=== PATIENT | female | born 1960 | race American Indian/Alaskan Native ===

== ENCOUNTER 2018-03-13 12:30 | Outpatient (CLI) | payer BC ==
--- NOTE | 2018-03-13 14:54 | Cat Scan Report ---
FINAL REPORT EXAM: CT CHEST WO CON HISTORY: PERSISTENT COUGH/DYSPNEA TECHNIQUE: CT examination of the chest without IV contrast PRIORS: None. FINDINGS: Normal cardiac size without pericardial effusion. Normal caliber thoracic aorta. Suggestion of postoperative change of the GE junction. Otherwise normal-appearing esophagus. No hilar mass or mediastinal adenopathy. Prominent granulomatous calcification in the right hilum, subcarinal region, right lung, liver, and spleen. Diverticulosis in visible portion of colon. No acute fracture or focal osseous lesion. Slight degenerative change in the regional skeleton. No lung mass or pulmonary nodule. No pneumothorax, pleural effusion, or focal pulmonary consolidation. IMPRESSION: Diverticulosis visible portion of colon No CT evidence of acute cardiopulmonary disease
== END 2018-03-13 12:31 | disposition home or self-care (01) ==
LOC: CT 12:30
PROVIDERS: ATTEND Specialist
DX: R05 Cough (principal); R06.00 Dyspnea, unspecified; K57.30 Diverticulosis of large intestine without perforation or abscess without bleeding; Z91.018 Allergy to other foods
CPT/HCPCS: 71250

== ENCOUNTER 2018-03-31 11:22 | Outpatient (CLI) | payer BC ==
--- NOTE | 2018-04-04 05:19 | Treadmill Report ---
THALLIUM STRESS TEST LEFT VENTRICLE: Left ventricular chamber size is within normal spread. Perfusion study demonstrates homogeneous uptake of the tracer in all segments, no significant perfusion defects identified. Gated analysis demonstrates normal left ventricular systolic function, ejection fraction 70%. CONCLUSION: Normal myocardial perfusion study. JOB# [id number] CA/NTS
== END 2018-03-31 11:23 | disposition home or self-care (01) ==
LOC: CARD 11:22
PROVIDERS: ATTEND Internal Medicine Cardiovascular Disease
DX: I34.0 Nonrheumatic mitral (valve) insufficiency (principal); J45.909 Unspecified asthma, uncomplicated; Z91.018 Allergy to other foods
CPT/HCPCS: 78452; 93017; 93306; A9502

== ENCOUNTER 2018-06-23 11:00 | Outpatient (CLI) | payer BC | END 2018-06-23 11:01 | disposition home or self-care (01) | LOC: SLR 11:00 | PROVIDERS: ATTEND Otolaryngology | DX: G47.33 Obstructive sleep apnea (adult) (pediatric) (principal); R40.0 Somnolence; R06.83 Snoring | CPT/HCPCS: 95810 ==

== ENCOUNTER 2021-05-02 16:21 | Outpatient (CLI) | payer BC ==
[2021-05-02 16:57] LABS: Basophils # (Auto) 0.1 K/mm3 (0.0-0.1); Basophils % (Auto) 0.8 % (0.0-1.8); Eosinophils # (Auto) 0.2 K/mm3 (0.0-0.4); Eosinophils % (Auto) 2.1 % (0.0-4.3); Hematocrit 40.5 % (30.3-42.9); Hemoglobin 14.1 gm/dl (10.1-14.3); Lymphocytes # (Auto) 1.1 K/mm3 (1.2-5.4); Lymphocytes % (Auto) 11.9 % (13.4-35.0); Mean Corpuscular HGB Conc 35 % (30-34); Mean Corpuscular Volume 93 fl (79-97); Monocytes # (Auto) 0.5 K/mm3 (0.0-0.8); Monocytes % (Auto) 5.3 % (0.0-7.3); Platelet Count 367 K/mm3 (140-440); Red Blood Count 4.38 M/mm3 (3.65-5.03); Red Cell Distribution Width 13.2 % (13.2-15.2)
[2021-05-02 17:32] LABS: Alanine Aminotransferase 15 units/L (7-56); Albumin 4.2 g/dL (3.9-5); Blood Urea Nitrogen 19 mg/dL (7-17); Calcium 10.3 mg/dL (8.4-10.2); Chol/HDL Ratio 5.11 %; HDL Cholesterol 51 mg/dL (40-59); Hemolysis Index 28; LDL Cholesterol,Direct 175 mg/dL (50-130)
[2021-05-02 17:33] LABS: BUN/Creatinine Ratio 32
[2021-05-07 12:56] LABS: Vitamin D, 25-OH, D2 <4 ng/mL
== END 2021-05-02 16:22 | disposition home or self-care (01) ==
LOC: LAB 16:21
PROVIDERS: ATTEND Internal Medicine
DX: Z00.00 Encounter for general adult medical examination without abnormal findings (principal); Z13.1 Encounter for screening for diabetes mellitus; E78.2 Mixed hyperlipidemia; R53.83 Other fatigue; I10 Essential (primary) hypertension; E55.9 Vitamin D deficiency, unspecified
CPT/HCPCS: 36415; 80053; 80061; 82306; 83036; 84443; 85025